=== PATIENT | female | born 1930 | race Caucasian/White ===

== ENCOUNTER 2018-10-08 15:31 | Emergency (ER) | payer MEDICARE ==
[~2018-10-08] VITALS: Ht 170.2 cm; Wt 62.0 kg
[~2018-10-08 15:31] MED LIST: ACET-2119 PO; ANTIDIARRHEAL PO; ASPI-1265 PO; ATEN25TA PO; BENA40TA73 PO; CLOP75TA9 PO; CYCL-1 PO; FERR325T28 PO; GABA600T13 PO; LACT1CAP67; OCUVITE PO; PANT40TA4 PO; TRIA1TAB3 PO; allergy pill
[2018-10-08 16:04] LABS: BASOPHILS % (AUTO) 0.2 % (0-1); EOSINOPHILS # (AUTO) 0.3 X10'3 (0-0.9); EOSINOPHILS % (AUTO) 3.6 % (0-6); HEMATOCRIT 40.3 % (35.0-45.0); HEMOGLOBIN 13.3 g/dl (12.0-16.0); LYMPHOCYTES # (AUTO) 0.6 X10'3 (1.1-4.8); LYMPHOCYTES % (AUTO) 6.4 % (21-51); MEAN CORPUSCULAR HEMOGLOBIN 34.1 PG (27.0-31.0); MEAN CORPUSCULAR HGB CONC 32.9 g/dL (33.0-36.5); MEAN CORPUSCULAR VOLUME 103.6 FL (78-98); MEAN PLATELET VOLUME 8.7 FL (7.4-10.4); MONOCYTES # (AUTO) 0.3 X10'3 (0-0.9); MONOCYTES % (AUTO) 3.5 % (2-12); NEUTROPHILS # (AUTO) 8.4 X10'3 (1.8-7.7); NEUTROPHILS % (AUTO) 86.3 % (42-75); PLATELET COUNT 188 X10'3 (140-440); RED BLOOD COUNT 3.89 X10'6 (4.20-5.60); RED CELL DISTRIBUTION WIDTH 12.3 % (11.5-14.5); WHITE BLOOD COUNT 9.7 X10'3 (4.5-11.0)
[2018-10-08 16:18] LABS: ALANINE AMINOTRANSFERASE 17 U/L (12-78); ALBUMIN 3.5 G/DL (3.4-5.0); ALKALINE PHOSPHATASE 53 IU/L (46-116); ANION GAP 8 (8-16); ASPARTATE AMINO TRANSFERASE 16 U/L (10-37); BILIRUBIN,TOTAL 0.2 MG/DL (0.1-1.0); BLOOD UREA NITROGEN 34 MG/DL (7-18); BUN/CREATININE RATIO 27.6 (6.6-38.0); CHLORIDE 96 MMOL/L (99-107); CREATININE 1.23 MG/DL (0.40-0.90); GLUCOSE 116 MG/DL (70-104); POTASSIUM 4.2 MMOL/L (3.5-5.1); SODIUM 129 MMOL/L (135-145); TOTAL CARBON DIOXIDE 25.3 MMOL/L (24-32); TOTAL PROTEIN 6.9 G/DL (6.4-8.2); eGFR 41 ML/MIN
[2018-10-08 16:19] LABS: INR 0.9 INR; PROTHROMBIN TIME 9.6 SECONDS (9.0-12.0)
[2018-10-08 16:40] LABS: LIPASE 50 U/L (73-393)
[2018-10-08 19:47] LABS: CLARITY,URINE CLEAR (Clear); COLOR,URINE YELLOW (Yellow); GLUCOSE, URINE NEGATIVE (Neg); KETONES,URINE NEGATIVE (Neg); LEUKOCYTE ESTERASE ,URINE TRACE (Neg); NITRITES, URINE NEGATIVE (Neg); OCCULT BLOOD,URINE NEGATIVE (Neg); PH,URINE 5.5 (4.8-8.0); PROTEIN,URINE TRACE mg/dl (Neg); UROBILINOGEN,URINE 0.2 E.U/dL (0.2-1.0)
[2018-10-08 19:49] LABS: UA COLLECTION TYPE CLN CATCH MIDSTREAM
[2018-10-08 19:55] LABS: BACTERIA,URINE FEW /HPF (Neg); COARSE GRANULAR CAST 0-3 /LPF (NEGATIVE); RBC,URINE 0-2 /HPF (0-2); SQUAMOUS EPITHELIAL CELL,UR FEW /LPF (FEW); WBC,URINE 0-4 /HPF (0-4)
[2018-10-08 20:21] VITALS: BP 111/61
[2018-10-08] MEDS ORDERED: normal saline 1000ML IV soln IV ONE (20:40)
== END 2018-10-08 20:04 | disposition home or self-care (01) ==
LOC: ER 15:32
DX: R53.1 Weakness (principal); R19.7 Diarrhea, unspecified; G89.29 Other chronic pain; I10 Essential (primary) hypertension; J44.9 Chronic obstructive pulmonary disease, unspecified; F17.200 Nicotine dependence, unspecified, uncomplicated; Z91.040 Latex allergy status; Z88.2 Allergy status to sulfonamides; Z79.82 Long term (current) use of aspirin; Z79.899 Other long term (current) drug therapy
CPT/HCPCS: 36415; 74176; 80053; 81001; 83605; 83690; 84145; 85025; 85610; 87040; 87088; 96360; 99284; J7030

== ENCOUNTER 2019-03-19 16:18 | Inpatient (IN) | payer MEDICARE ==
[~2019-03-19] VITALS: Ht 170.2 cm; Wt 75.0 kg
[2019-03-19] MEDS ORDERED: normal saline 1000ML IV soln IVB ONE (16:50)
[2019-03-19] MEDS ORDERED: ipratropium/albuterol 3ml nebule NEB ONE (16:50)
[2019-03-19 17:32] LABS: BASOPHILS % (AUTO) 0.1 % (0-1); EOSINOPHILS % (AUTO) 0 % (0-6); HEMATOCRIT 38.1 % (35.0-45.0); HEMOGLOBIN 12.9 g/dl (12.0-16.0); LYMPHOCYTES # (AUTO) 0.2 X10'3 (1.1-4.8); LYMPHOCYTES % (AUTO) 1.4 % (21-51); MEAN CORPUSCULAR HEMOGLOBIN 35.2 PG (27.0-31.0); MEAN CORPUSCULAR HGB CONC 33.8 g/dL (33.0-36.5); MEAN PLATELET VOLUME 7.5 FL (7.4-10.4); MONOCYTES # (AUTO) 0.6 X10'3 (0-0.9); MONOCYTES % (AUTO) 3.3 % (2-12); NEUTROPHILS # (AUTO) 16.9 X10'3 (1.8-7.7); NEUTROPHILS % (AUTO) 95.2 % (42-75); PLATELET COUNT 223 X10'3 (140-440); RED BLOOD COUNT 3.66 X10'6 (4.20-5.60); RED CELL DISTRIBUTION WIDTH 12.2 % (11.5-14.5); WHITE BLOOD COUNT 17.7 X10'3 (4.5-11.0)
[2019-03-19] MEDS ORDERED: normal saline 1000ML IV soln IV ONE (17:35)
[2019-03-19] MEDS ORDERED: diltiazem 5mg/ml 5ml inj. IV ONE (17:35)
[2019-03-19 17:48] LABS: ALANINE AMINOTRANSFERASE 20 U/L (12-78); ALBUMIN 3.2 G/DL (3.4-5.0); ALKALINE PHOSPHATASE 51 IU/L (46-116); ANION GAP 8 (8-16); ASPARTATE AMINO TRANSFERASE 30 U/L (10-37); BILIRUBIN,TOTAL 0.4 MG/DL (0.1-1.0); BLOOD UREA NITROGEN 18 MG/DL (7-18); CALCIUM 8.6 MG/DL (8.5-10.1); CHLORIDE 94 MMOL/L (99-107); GLUCOSE 140 MG/DL (70-104); POTASSIUM 3.9 MMOL/L (3.5-5.1); SODIUM 129 MMOL/L (135-145); TOTAL CARBON DIOXIDE 27.1 MMOL/L (24-32); TOTAL PROTEIN 6.3 G/DL (6.4-8.2); eGFR 59 ML/MIN
[2019-03-19 17:59] LABS: CLARITY,URINE SLIGHTLY CLOUDY (Clear); COLOR,URINE YELLOW (Yellow); GLUCOSE, URINE NEGATIVE (Neg); KETONES,URINE 15 mg/dl (Neg); LEUKOCYTE ESTERASE ,URINE SMALL (Neg); NITRITES, URINE NEGATIVE (Neg); OCCULT BLOOD,URINE MODERATE (Neg); PH,URINE 6.5 (4.8-8.0); PROTEIN,URINE 100 mg/dl (Neg); UROBILINOGEN,URINE 0.2 E.U/dL (0.2-1.0)
[2019-03-19 18:01] LABS: CREATINE KINASE 467 U/L (26-192); TROPONIN I < 0.04 NG/ML (0.0-0.05)
[2019-03-19 18:23] LABS: UA COLLECTION TYPE STRAIGHT CATH
[2019-03-19 18:34] LABS: HYALINE CASTS 0-3 /LPF (NEGATIVE)
[2019-03-19 18:35] LABS: BACTERIA,URINE 1+ /HPF (Neg); MUCUS STRANDS MANY /LPF (Neg); SQUAMOUS EPITHELIAL CELL,UR FEW /LPF (FEW); WBC CLUMPS,URINE FEW /HPF (NEGATIVE); WBC,URINE TNTC /HPF (0-4)
[2019-03-19] MEDS ORDERED: CefTRIAXone 2gm/D5W 50ml 50 ML IV ONE (18:35)
[2019-03-19] MEDS ORDERED: GABA-532 PO (19:01)
[2019-03-19] MEDS ORDERED: PRAV20TA4 PO (19:02)
[2019-03-19] MEDS ORDERED: OXYB5TAB16 PO (19:03)
[2019-03-19] MEDS ORDERED: CARV-50 PO (19:03)
[2019-03-19] MEDS ORDERED: TRIA1CAP6 PO (19:05)
[2019-03-19] MEDS ORDERED: magnesium hydroxide 30ml (MOM) UD suspension PO PRN (19:35)
[2019-03-19] MEDS ORDERED: albuterol 2.5 MG/3 ML nebule NEB PRN (19:35)
[2019-03-19] MEDS ORDERED: mag hydrox/Alum hydrox/simeth 30ml oral suspension PO PRN (19:35)
[2019-03-19] MEDS ORDERED: HYDROcodone/acetaminophen 5mg/325mg tablet PO PRN (19:35)
[2019-03-19] MEDS ORDERED: acetaminophen 325mg tablet PO PRN (19:35)
[2019-03-19] MEDS ORDERED: ondansetron/PF 4mg/2ml inj IV PRN (19:35)
[2019-03-19] MEDS ORDERED: BENAZEPRIL HCL PO SCH (20:00)
[2019-03-19 22:00] VITALS: BP 143/64
[2019-03-19] MEDS: diltiazem CD 120mg capsule (once-daily) PO SCH (23:38)
[2019-03-19] MEDS: gabapentin 300mg capsule PO SCH (23:38)
[2019-03-19] MEDS: carVEDilol 12.5mg tablet PO SCH (23:39)
[2019-03-19] MEDS: lisinopril 20mg tablet PO SCH (23:39)
[2019-03-19] MEDS: oxybutynin 5mg tablet PO SCH (23:39)
[2019-03-20] VITALS (8 sets, daily range): BP systolic 112–143; BP diastolic 42–57
[2019-03-20 00:02] LABS: HEMOGLOBIN A1C 5.4 % (4.5-6.2)
[2019-03-20 04:55] LABS: BASOPHILS % (AUTO) 0.1 % (0-1); EOSINOPHILS % (AUTO) 0.2 % (0-6); HEMATOCRIT 33.3 % (35.0-45.0); HEMOGLOBIN 11.6 g/dl (12.0-16.0); LYMPHOCYTES # (AUTO) 0.4 X10'3 (1.1-4.8); LYMPHOCYTES % (AUTO) 3.9 % (21-51); MEAN CORPUSCULAR HEMOGLOBIN 36.3 PG (27.0-31.0); MEAN CORPUSCULAR HGB CONC 34.8 g/dL (33.0-36.5); MEAN CORPUSCULAR VOLUME 104.5 FL (78-98); MEAN PLATELET VOLUME 8.1 FL (7.4-10.4); MONOCYTES # (AUTO) 0.7 X10'3 (0-0.9); NEUTROPHILS # (AUTO) 9.2 X10'3 (1.8-7.7); NEUTROPHILS % (AUTO) 88.8 % (42-75); PLATELET COUNT 163 X10'3 (140-440); RED BLOOD COUNT 3.19 X10'6 (4.20-5.60); RED CELL DISTRIBUTION WIDTH 12.5 % (11.5-14.5); WHITE BLOOD COUNT 10.4 X10'3 (4.5-11.0)
[2019-03-20 05:03] LABS: ALBUMIN 2.7 G/DL (3.4-5.0); ANION GAP 10 (8-16); BLOOD UREA NITROGEN 22 MG/DL (7-18); BUN/CREATININE RATIO 27.2 (6.6-38.0); CALCIUM 8.5 MG/DL (8.5-10.1); CHLORIDE 96 MMOL/L (99-107); CREATININE 0.81 MG/DL (0.40-0.90); GLUCOSE 118 MG/DL (70-104); POTASSIUM 3.6 MMOL/L (3.5-5.1); SODIUM 131 MMOL/L (135-145); eGFR 67 ML/MIN
[2019-03-20] MEDS ORDERED: pravastatin 40mg tablet PO SCH (08:00)
[2019-03-20] MEDS ORDERED: non-formulary drug (Pravastatin Sodium 1 TAB) PO SCH (08:00)
[2019-03-20] MEDS: ferrous sulfate 325mg tablet PO SCH (08:33)
[2019-03-20] MEDS: oxybutynin 5mg tablet PO SCH ×2 (08:33→20:31)
[2019-03-20] MEDS: gabapentin 300mg capsule PO SCH ×3 (08:34→20:28)
[2019-03-20] MEDS: aspirin 81mg tab.chew PO SCH (08:34)
[2019-03-20] MEDS: enoxaparin 40mg/0.4ml syringe SUBCUT SCH (08:35)
[2019-03-20] MEDS: CefTRIAXone/D5W-Rocephin 1gm 50 ML IV SCH (09:20)
[2019-03-20] MEDS: diltiazem CD 120mg capsule (once-daily) PO SCH (09:25)
[2019-03-20] MEDS: triamterene/HCTZ 37.5/25mg tablet PO SCH (09:25)
[2019-03-20] MEDS: carVEDilol 12.5mg tablet PO SCH ×2 (09:26→20:30)
[2019-03-20] MEDS: lisinopril 20mg tablet PO SCH ×2 (09:26→20:29)
[2019-03-20] MEDS: acetaminophen 325mg tablet PO PRN (13:30)
[2019-03-20] MEDS ORDERED: furosemide 40mg/4ml inj IV ONE (13:40)
--- NOTE | 2019-03-20 18:12 | NUR ---
Problems reprioritized. Patient report given, questions answered & plan of care reviewed with YOBANI GIRARD.
--- NOTE | 2019-03-20 18:30 | NUR ---
Patient in room PCU 3028. I have received report from Monica HILTON and had the opportunity to ask questions and assume patient care. Patient resting with oxygen on, very lethargic. O2 saturation 100% on 3L/min, decreased to 2 L/min saturation to 98%. Will continue to monitor.
[2019-03-20] MEDS: lactobacillus rhamnosus 10,000 MMU CELLS/CAPSULE PO SCH (20:30)
[2019-03-21 02:30] VITALS: BP 110/53
[2019-03-21 06:00] VITALS: BP 109/53
--- NOTE | 2019-03-21 06:06 | NUR ---
Notified Dr. Woodward that the patient had 715 in bladder per bladder scanner. Received order for 1 time straight cath, result of 500 ml clear strong odor, patient states relief. Will continue to monitor.
--- NOTE | 2019-03-21 06:15 | NUR ---
Patient in room PCU 3028. I have received report from YOBANI Carrillo and had the opportunity to ask questions and assume patient care.
[2019-03-21 06:22] LABS: BASOPHILS % (AUTO) 0.3 % (0-1); EOSINOPHILS # (AUTO) 0.5 X10'3 (0-0.9); EOSINOPHILS % (AUTO) 6.3 % (0-6); HEMATOCRIT 32.1 % (35.0-45.0); HEMOGLOBIN 11.1 g/dl (12.0-16.0); LYMPHOCYTES % (AUTO) 13.6 % (21-51); MEAN CORPUSCULAR HEMOGLOBIN 35.6 PG (27.0-31.0); MEAN CORPUSCULAR HGB CONC 34.5 g/dL (33.0-36.5); MEAN CORPUSCULAR VOLUME 103.4 FL (78-98); MEAN PLATELET VOLUME 8.3 FL (7.4-10.4); MONOCYTES # (AUTO) 0.7 X10'3 (0-0.9); MONOCYTES % (AUTO) 9.1 % (2-12); NEUTROPHILS # (AUTO) 5.2 X10'3 (1.8-7.7); NEUTROPHILS % (AUTO) 70.7 % (42-75); PLATELET COUNT 171 X10'3 (140-440); RED BLOOD COUNT 3.11 X10'6 (4.20-5.60); RED CELL DISTRIBUTION WIDTH 12.5 % (11.5-14.5); WHITE BLOOD COUNT 7.3 X10'3 (4.5-11.0)
[2019-03-21 06:34] LABS: ALBUMIN 2.9 G/DL (3.4-5.0); ANION GAP 8 (8-16); BLOOD UREA NITROGEN 28 MG/DL (7-18); BUN/CREATININE RATIO 32.9 (6.6-38.0); CALCIUM 9.1 MG/DL (8.5-10.1); CHLORIDE 96 MMOL/L (99-107); CREATININE 0.85 MG/DL (0.40-0.90); GLUCOSE 106 MG/DL (70-104); POTASSIUM 3.3 MMOL/L (3.5-5.1); SODIUM 132 MMOL/L (135-145); TOTAL CARBON DIOXIDE 27.8 MMOL/L (24-32); eGFR 63 ML/MIN
--- NOTE | 2019-03-21 06:43 | NUR ---
Problems reprioritized. Patient report given, questions answered & plan of care reviewed with Erika HILTON. Patient resting in bed, denies needs at this time.
[2019-03-21] MEDS: triamterene/HCTZ 37.5/25mg tablet PO SCH (08:30)
[2019-03-21] MEDS: pravastatin 40mg tablet PO SCH (08:30)
[2019-03-21] MEDS: oxybutynin 5mg tablet PO SCH ×2 (08:30→19:49)
[2019-03-21] MEDS: carVEDilol 12.5mg tablet PO SCH ×2 (08:30→19:49)
[2019-03-21] MEDS: ferrous sulfate 325mg tablet PO SCH (08:30)
[2019-03-21] MEDS: lactobacillus rhamnosus 10,000 MMU CELLS/CAPSULE PO SCH ×2 (08:30→19:49)
[2019-03-21] MEDS: aspirin 81mg tab.chew PO SCH (08:31)
[2019-03-21] MEDS: gabapentin 300mg capsule PO SCH ×3 (08:31→20:59)
[2019-03-21] MEDS: diltiazem CD 120mg capsule (once-daily) PO SCH (08:31)
[2019-03-21] MEDS: lisinopril 20mg tablet PO SCH ×2 (08:31→19:50)
[2019-03-21] MEDS: enoxaparin 40mg/0.4ml syringe SUBCUT SCH (08:32)
[2019-03-21] MEDS: CefTRIAXone/D5W-Rocephin 1gm 50 ML IV SCH (08:32)
[2019-03-21] MEDS ORDERED: potassium Cl 20 mEq SR tablet PO STA (09:21)
[2019-03-21 11:00] VITALS: BP 91/49
[2019-03-21] MEDS: acetaminophen 325mg tablet PO PRN ×2 (14:26→21:00)
[2019-03-21 15:00] VITALS: BP 110/46
[2019-03-21 18:00] VITALS: BP 140/53
--- NOTE | 2019-03-21 18:00 | NUR ---
Patient in room PCU 3028. I have received report from YOBANI Green and had the opportunity to ask questions and assume patient care.
--- NOTE | 2019-03-21 18:27 | NUR ---
Problems reprioritized. Patient report given, questions answered & plan of care reviewed with YOBANI Matos.
[2019-03-21 22:00] VITALS: BP 112/52
[2019-03-22 02:00] VITALS: BP 134/60
--- NOTE | 2019-03-22 04:50 | NUR ---
Patient slept well this shift, eager to go home. Alert and oriented. Able to transfer to the bedside commode with one person assisting. Dressing on left elbow/forearm changed this shift. Will continue to monitor.
[2019-03-22 05:16] LABS: BASOPHILS % (AUTO) 0.6 % (0-1); EOSINOPHILS # (AUTO) 0.6 X10'3 (0-0.9); EOSINOPHILS % (AUTO) 9.4 % (0-6); HEMATOCRIT 31.1 % (35.0-45.0); HEMOGLOBIN 10.8 g/dl (12.0-16.0); LYMPHOCYTES # (AUTO) 1.2 X10'3 (1.1-4.8); LYMPHOCYTES % (AUTO) 19.7 % (21-51); MEAN CORPUSCULAR HEMOGLOBIN 36.2 PG (27.0-31.0); MEAN CORPUSCULAR HGB CONC 34.7 g/dL (33.0-36.5); MEAN CORPUSCULAR VOLUME 104.1 FL (78-98); MEAN PLATELET VOLUME 8.5 FL (7.4-10.4); MONOCYTES # (AUTO) 0.7 X10'3 (0-0.9); MONOCYTES % (AUTO) 10.8 % (2-12); NEUTROPHILS # (AUTO) 3.6 X10'3 (1.8-7.7); NEUTROPHILS % (AUTO) 59.5 % (42-75); PLATELET COUNT 176 X10'3 (140-440); RED BLOOD COUNT 2.99 X10'6 (4.20-5.60); WHITE BLOOD COUNT 6.1 X10'3 (4.5-11.0)
[2019-03-22 05:52] LABS: ALBUMIN 2.9 G/DL (3.4-5.0); ANION GAP 5 (8-16); BLOOD UREA NITROGEN 22 MG/DL (7-18); BUN/CREATININE RATIO 25.6 (6.6-38.0); CALCIUM 9.4 MG/DL (8.5-10.1); CHLORIDE 97 MMOL/L (99-107); CREATININE 0.86 MG/DL (0.40-0.90); GLUCOSE 103 MG/DL (70-104); POTASSIUM 3.4 MMOL/L (3.5-5.1); SODIUM 133 MMOL/L (135-145); TOTAL CARBON DIOXIDE 31.4 MMOL/L (24-32); eGFR 62 ML/MIN
--- NOTE | 2019-03-22 06:09 | NUR ---
Problems reprioritized. Patient report given, questions answered & plan of care reviewed with Peter HILTON.
--- NOTE | 2019-03-22 06:18 | NUR ---
Patient in room PCU 3028. I have received report from YOBANI Matos and had the opportunity to ask questions and assume patient care.
[2019-03-22 07:00] VITALS: BP 140/59
[2019-03-22] MEDS: CefTRIAXone/D5W-Rocephin 1gm 50 ML IV SCH (08:34)
[2019-03-22] MEDS: aspirin 81mg tab.chew PO SCH (08:34)
[2019-03-22] MEDS: triamterene/HCTZ 37.5/25mg tablet PO SCH (08:35)
[2019-03-22] MEDS: carVEDilol 12.5mg tablet PO SCH (08:35)
[2019-03-22] MEDS: lactobacillus rhamnosus 10,000 MMU CELLS/CAPSULE PO SCH (08:35)
[2019-03-22] MEDS: ferrous sulfate 325mg tablet PO SCH (08:35)
[2019-03-22] MEDS: diltiazem CD 120mg capsule (once-daily) PO SCH (08:35)
[2019-03-22] MEDS: oxybutynin 5mg tablet PO SCH (08:35)
[2019-03-22] MEDS: gabapentin 300mg capsule PO SCH (08:35)
[2019-03-22] MEDS: enoxaparin 40mg/0.4ml syringe SUBCUT SCH (08:36)
[2019-03-22] MEDS: pravastatin 40mg tablet PO SCH (08:36)
[2019-03-22] MEDS: lisinopril 20mg tablet PO SCH (08:36)
[2019-03-22 11:00] VITALS: BP 147/60
[2019-03-22] MEDS ORDERED: CARCD120C PO (11:05)
--- NOTE | 2019-03-22 12:15 | NUR ---
Pt received d/c instructions, verbalized understanding. Pt verbalizes understanding medication changes. New medication called to [facility] on [address]. Dc'd SL, catheter tip intact. Site clear. Dc'd via w/c to private vehicle (with daughter), all personal belongings sent home with pt.
--- NOTE | 2019-03-22 16:24 | NUR ---
[place] documentation: I have reviewed and agree with all interventions, assessments performed and documented by YOBANI Doan.
--- NOTE | 2019-03-22 16:24 | NUR ---
[place] Medication Administration: For this medication-pass time frame, all medication were reviewed, dispensed, administered and documented per hospital policy by YOBANI Doan.
== END 2019-03-22 12:25 | disposition home health service (06) | DRG 871 ==
LOC: ER 16:19 → CANBEDREQ 18:13 → PCU 3S 21:20 → CMPBEDREQ 21:23 → S STAY 03-20 09:29 → PCU 3S 03-20 09:30
PROVIDERS: ADMIT Hospitalist; ATTEND Family Medicine
DX: A41.9 Sepsis, unspecified organism (principal); G93.41 Metabolic encephalopathy; N30.01 Acute cystitis with hematuria; E11.9 Type 2 diabetes mellitus without complications; I11.0 Hypertensive heart disease with heart failure; I48.91 Unspecified atrial fibrillation; S51.812A Laceration without foreign body of left forearm, initial encounter; I50.9 Heart failure, unspecified; G89.29 Other chronic pain; W18.39XA Other fall on same level, initial encounter; M54.9 Dorsalgia, unspecified; J44.9 Chronic obstructive pulmonary disease, unspecified; Z66 Do not resuscitate; Z85.828 Personal history of other malignant neoplasm of skin; Z87.440 Personal history of urinary (tract) infections; Z90.710 Acquired absence of both cervix and uterus; Z98.1 Arthrodesis status; Y93.89 Activity, other specified; Y92.89 Other specified places as the place of occurrence of the external cause; Y99.8 Other external cause status; Z88.2 Allergy status to sulfonamides; Z91.040 Latex allergy status; Z82.49 Family history of ischemic heart disease and other diseases of the circulatory system; Z83.3 Family history of diabetes mellitus
CPT/HCPCS: 36415; 70450; 71045; 80048; 80053; 81001; 82550; 82948; 83036; 83605; 83880; 84145; 84443; 84484; 85025; 85610; 87040; 87081; 87088; 93005; 93306; 94640; 94760; 96365; 96375; 97116; 97162; 97530; 99285; G0378; J0696; J1650; J1940; J3490

== ENCOUNTER 2019-03-27 16:19 | Inpatient (IN) | payer MEDICARE ==
[~2019-03-27] VITALS: Ht 170.2 cm; Wt 62.0 kg
[~2019-03-27 16:19] MED LIST changes: -ANTIDIARRHEAL PO; -ATEN25TA PO; +CARCD120C PO; +CARV-50 PO; -CLOP75TA9 PO; -CYCL-1 PO; +GABA-532 PO; -GABA600T13 PO; +OXYB5TAB16 PO; -PANT40TA4 PO; +PRAV20TA4 PO; -allergy pill
[2019-03-27] MEDS ORDERED: methylPREDNISolone sod succ 125mg/2ml vial IV ONE (16:35)
[2019-03-27] MEDS ORDERED: ipratropium/albuterol 3ml nebule NEB ONE (16:45)
--- NOTE | 2019-03-27 16:46 | NUR ---
relieving RN for break, pt is resting quietly on gurney, high fowlers, speaking 2-3 word sentences, just finished breathing treatment, laboratory chemist at bedside, pt is 84% on room air, placed pt on 6liters 02 nasal cannula
--- NOTE | 2019-03-27 16:54 | NUR ---
Dr Goel aware of low pulse ox reading, placed order for RT to place pt on bipap, pulse ox is 97% on 6liters, turned 02 down to 2liters
--- NOTE | 2019-03-27 16:59 | NUR ---
report to Jarrod HILTON
--- NOTE | 2019-03-27 17:04 | NUR ---
Rt at bedside.
[2019-03-27 17:05] LABS: RED CELL DISTRIBUTION WIDTH 12.3 % (11.5-14.5)
[2019-03-27 17:06] LABS: HEMATOCRIT 36.9 % (35.0-45.0); HEMOGLOBIN 12.6 g/dl (12.0-16.0); MEAN CORPUSCULAR HEMOGLOBIN 35.6 PG (27.0-31.0); MEAN CORPUSCULAR HGB CONC 34.1 g/dL (33.0-36.5); MEAN CORPUSCULAR VOLUME 104.4 FL (78-98); MEAN PLATELET VOLUME 7.6 FL (7.4-10.4); PLATELET COUNT 298 X10'3 (140-440); RED BLOOD COUNT 3.53 X10'6 (4.20-5.60)
[2019-03-27 17:08] LABS: WHITE BLOOD COUNT 12.4 X10'3 (4.5-11.0)
[2019-03-27 17:14] LABS: PARTIAL THROMBOPLASTIN TIME 26 SECONDS (22-32)
[2019-03-27 17:17] LABS: ALANINE AMINOTRANSFERASE 21 U/L (12-78); ALBUMIN 3.8 G/DL (3.4-5.0); ALBUMIN/GLOBULIN RATIO 1.4 (1.1-1.5); ALKALINE PHOSPHATASE 54 IU/L (46-116); ANION GAP 10 (8-16); ASPARTATE AMINO TRANSFERASE 13 U/L (10-37); BILIRUBIN,TOTAL 0.5 MG/DL (0.1-1.0); BLOOD UREA NITROGEN 19 MG/DL (7-18); BUN/CREATININE RATIO 18.8 (6.6-38.0); CALCIUM 9.8 MG/DL (8.5-10.1); CHLORIDE 98 MMOL/L (99-107); CREATININE 1.01 MG/DL (0.40-0.90); GLUCOSE 97 MG/DL (70-104); POTASSIUM 3.6 MMOL/L (3.5-5.1); SODIUM 134 MMOL/L (135-145); TOTAL PROTEIN 6.5 G/DL (6.4-8.2); eGFR 52 ML/MIN
--- NOTE | 2019-03-27 17:25 | NUR ---
PATIENT STARTED ON BIPAP.WE WILL MONITOR.
[2019-03-27] MEDS ORDERED: TRIA1CAP6 PO (17:31)
[2019-03-27] MEDS ORDERED: NITR100C PO (17:31)
[2019-03-27] MEDS ORDERED: DILT120C95 PO (17:32)
[2019-03-27 17:55] LABS: TOTAL CELLS COUNTED 100
[2019-03-27 17:56] LABS: TOXIC VACUOLATION 1+
[2019-03-27 17:57] LABS: ACANTHOCYTES FEW; ELLIPTOCYTES FEW; PLATELET ESTIMATE NORMAL
[2019-03-27] MEDS ORDERED: normal saline 1000ML IV soln IVB ONE ×2 (18:15→18:40)
--- NOTE | 2019-03-27 18:15 | NUR ---
fi02 35% patient sating 89-90%,patient has hx of copd.
[2019-03-27] MEDS ORDERED: CefTRIAXone 2gm/D5W 50ml 50 ML IV ONE (18:40)
--- NOTE | 2019-03-27 19:41 | NUR ---
RT at BS
--- NOTE | 2019-03-27 19:50 | NUR ---
PT REQUESTING THE CPAP BE REMOVED. REMOVED, ON OXYGEN 3 L NC. INFORMED .
[2019-03-27 20:05] LABS: ABG BASE EXCESS -2.8 mmol/L (-2.0-3.0); ABG HCO3 22.8 mmol/L (22.0-26.0); ABG OXYGEN SATURATION 93.9 % (95-98); ABG PCO2 (T) 42.6 mmHg (35.0-45.0); ABG PH (T) 7.345 (7.350-7.450); ALLEN'S TEST Positive; FCOHb 0.8 % (0.5-1.5); FLOW 3 L/min; FMetHb 0.1 % (0.3-1.12); FO2Hb 93.1 % (94-100); PATIENT TEMPERATURE 36.9; RESPIRATORY RATE (OBSERVED) 16 b/min; TOTAL HEMOGLOBIN 11.3 G/dl (12.0-16.0)
--- NOTE | 2019-03-27 20:08 | NUR ---
PT DOING WELL WITH NC.
[2019-03-27] MEDS ORDERED: acetaminophen 325mg tablet PO PRN (20:40)
[2019-03-27] MEDS ORDERED: mag hydrox/Alum hydrox/simeth 30ml oral suspension PO PRN (20:40)
[2019-03-27] MEDS ORDERED: magnesium hydroxide 30ml (MOM) UD suspension PO PRN (20:40)
[2019-03-27] MEDS ORDERED: HYDROcodone/acetaminophen 5mg/325mg tablet PO PRN (20:40)
[2019-03-27] MEDS ORDERED: albuterol 2.5 MG/3 ML nebule NEB PRN (20:40)
[2019-03-27] MEDS ORDERED: ondansetron/PF 4mg/2ml inj IV PRN (20:40)
[2019-03-27] MEDS: normal saline 1000ml 1,000 ML IV SCH (21:58)
[2019-03-27] MEDS: acetaminophen 325mg tablet PO PRN (22:09)
--- NOTE | 2019-03-27 22:58 | NUR ---
Macular degenration Addendum: 03/27/19 at 2312 by Deshawn Rubin RN Amended: Links added.
[2019-03-28 00:07] VITALS: BP 150/81
--- NOTE | 2019-03-28 01:46 | NUR ---
Patient in room [facility] 345. I have received report from Cait ED RN, 3081 and had the opportunity to ask questions and assume patient care. patient arrived via gurney with belongings. RN transported, and daughter accompanied. Patient was in no apparent distress. Admiting process begun.
[2019-03-28 04:37] LABS: BASOPHILS % (AUTO) 0.1 % (0-1); EOSINOPHILS % (AUTO) 0 % (0-6); HEMATOCRIT 30.7 % (35.0-45.0); HEMOGLOBIN 10.3 g/dl (12.0-16.0); LYMPHOCYTES # (AUTO) 0.1 X10'3 (1.1-4.8); LYMPHOCYTES % (AUTO) 0.4 % (21-51); MEAN CORPUSCULAR HEMOGLOBIN 35.1 PG (27.0-31.0); MEAN CORPUSCULAR HGB CONC 33.5 g/dL (33.0-36.5); MEAN CORPUSCULAR VOLUME 104.8 FL (78-98); MEAN PLATELET VOLUME 8.1 FL (7.4-10.4); MONOCYTES # (AUTO) 0.6 X10'3 (0-0.9); MONOCYTES % (AUTO) 2.8 % (2-12); NEUTROPHILS # (AUTO) 22.4 X10'3 (1.8-7.7); NEUTROPHILS % (AUTO) 96.7 % (42-75); PLATELET COUNT 255 X10'3 (140-440); RED BLOOD COUNT 2.93 X10'6 (4.20-5.60); RED CELL DISTRIBUTION WIDTH 12.4 % (11.5-14.5); WHITE BLOOD COUNT 23.2 X10'3 (4.5-11.0)
[2019-03-28 04:52] LABS: ALBUMIN 2.8 G/DL (3.4-5.0); ANION GAP 9 (8-16); BLOOD UREA NITROGEN 22 MG/DL (7-18); BUN/CREATININE RATIO 23.4 (6.6-38.0); CALCIUM 9.3 MG/DL (8.5-10.1); CHLORIDE 101 MMOL/L (99-107); CREATININE 0.94 MG/DL (0.40-0.90); GLUCOSE 201 MG/DL (70-104); POTASSIUM 4.1 MMOL/L (3.5-5.1); SODIUM 134 MMOL/L (135-145); TOTAL CARBON DIOXIDE 24.3 MMOL/L (24-32); eGFR 56 ML/MIN
[2019-03-28 06:01] LABS: CLARITY,URINE CLOUDY (Clear); COLOR,URINE YELLOW (Yellow); GLUCOSE, URINE NEGATIVE (Neg); KETONES,URINE TRACE mg/dl (Neg); LEUKOCYTE ESTERASE ,URINE SMALL (Neg); NITRITES, URINE NEGATIVE (Neg); OCCULT BLOOD,URINE NEGATIVE (Neg); PROTEIN,URINE NEGATIVE (Neg); UROBILINOGEN,URINE 0.2 E.U/dL (0.2-1.0)
[2019-03-28 06:04] LABS: UA COLLECTION TYPE URINAL
[2019-03-28 06:12] LABS: BACTERIA,URINE 2+ /HPF (Neg); HYALINE CASTS 0-3 /LPF (NEGATIVE); MUCUS STRANDS FEW /LPF (Neg); RBC,URINE NONE SEEN /HPF (0-2); SQUAMOUS EPITHELIAL CELL,UR FEW /LPF (FEW); WBC CLUMPS,URINE MODERATE /HPF (NEGATIVE); WBC,URINE TNTC /HPF (0-4)
--- NOTE | 2019-03-28 06:40 | NUR ---
Patient in room [facility] 345. I have received report from YOBANI Hess and had the opportunity to ask questions and assume patient care.
--- NOTE | 2019-03-28 06:42 | NUR ---
Problems reprioritized. Patient report given, questions answered & plan of care reviewed with Rohit Bermudez and Andree HILTON.
--- NOTE | 2019-03-28 07:03 | NUR ---
Patient in room [facility] 345. I have received report from Andria Fowler RN and had the opportunity to ask questions and assume patient care. Addendum: 03/28/19 at 0704 by Lara Mckeon RN Wrong patient.
[2019-03-28 07:26] VITALS: BP 172/81
[2019-03-28] MEDS ORDERED: methylPREDNISolone sod succ 125mg/2ml vial IV ONE (08:00)
[2019-03-28] MEDS ORDERED: azithromycin/NS 500mg/250ml 250 ML IV SCH (08:00)
[2019-03-28] MEDS: CefTRIAXone/D5W-Rocephin 1gm 50 ML IV SCH (08:22)
[2019-03-28] MEDS: enoxaparin 40mg/0.4ml syringe SUBCUT SCH (08:24)
[2019-03-28] MEDS: normal saline 1000ml 1,000 ML IV SCH ×2 (08:32→21:47)
[2019-03-28 11:48] VITALS: BP 168/81
[2019-03-28] MEDS: acetaminophen 325mg tablet PO PRN (12:51)
[2019-03-28] MEDS: aspirin 81mg tab.chew PO SCH (15:18)
[2019-03-28 18:00] VITALS: BP 146/57
--- NOTE | 2019-03-28 18:31 | NUR ---
Problems reprioritized. Patient report given, questions answered & plan of care reviewed with YOBANI Hess.
--- NOTE | 2019-03-28 18:52 | NUR ---
Patient in room [facility] 345. I have received report from YOBANI Bermudez and had the opportunity to ask questions and assume patient care.
--- NOTE | 2019-03-28 18:56 | NUR ---
Called Day hospitalist to inform her that the patient order for Solumedrol 60mg BID had been dc'd. It was put in as a one time does to to give BID. Hospitalist said that she would look over the patients case and re order it if she thought it appropriate.
[2019-03-28] MEDS: oxybutynin 5mg tablet PO SCH (20:37)
[2019-03-28] MEDS: carVEDilol 12.5mg tablet PO SCH (20:38)
[2019-03-28] MEDS: lactobacillus rhamnosus 10,000 MMU CELLS/CAPSULE PO SCH (20:38)
[2019-03-28] MEDS: gabapentin 300mg capsule PO SCH (20:39)
[2019-03-28] MEDS: acetaminophen 325mg tablet PO SCH (20:39)
[2019-03-29 01:20] VITALS: BP 143/68
[2019-03-29] MEDS: acetaminophen 325mg tablet PO PRN ×2 (03:18→20:58)
[2019-03-29 05:28] LABS: ALBUMIN 2.7 G/DL (3.4-5.0); ANION GAP 8 (8-16); BLOOD UREA NITROGEN 19 MG/DL (7-18); BUN/CREATININE RATIO 27.5 (6.6-38.0); CALCIUM 8.7 MG/DL (8.5-10.1); CHLORIDE 102 MMOL/L (99-107); CREATININE 0.69 MG/DL (0.40-0.90); GLUCOSE 127 MG/DL (70-104); POTASSIUM 3.8 MMOL/L (3.5-5.1); SODIUM 135 MMOL/L (135-145); TOTAL CARBON DIOXIDE 25.1 MMOL/L (24-32); eGFR 80 ML/MIN
[2019-03-29 05:44] LABS: BASOPHILS % (AUTO) 0.1 % (0-1); EOSINOPHILS % (AUTO) 0.1 % (0-6); HEMATOCRIT 28.2 % (35.0-45.0); HEMOGLOBIN 9.5 g/dl (12.0-16.0); LYMPHOCYTES # (AUTO) 1.4 X10'3 (1.1-4.8); LYMPHOCYTES % (AUTO) 9.3 % (21-51); MEAN CORPUSCULAR HEMOGLOBIN 35.6 PG (27.0-31.0); MEAN CORPUSCULAR HGB CONC 33.9 g/dL (33.0-36.5); MEAN PLATELET VOLUME 8.1 FL (7.4-10.4); MONOCYTES # (AUTO) 1.5 X10'3 (0-0.9); MONOCYTES % (AUTO) 9.9 % (2-12); NEUTROPHILS # (AUTO) 11.9 X10'3 (1.8-7.7); NEUTROPHILS % (AUTO) 80.6 % (42-75); PLATELET COUNT 223 X10'3 (140-440); RED BLOOD COUNT 2.68 X10'6 (4.20-5.60); RED CELL DISTRIBUTION WIDTH 12.7 % (11.5-14.5); WHITE BLOOD COUNT 14.7 X10'3 (4.5-11.0)
--- NOTE | 2019-03-29 06:45 | NUR ---
Problems reprioritized. Patient report given, questions answered & plan of care reviewed with YOBANI Salguero.
[2019-03-29 07:00] VITALS: BP 155/79
[2019-03-29] MEDS ORDERED: diltiazem CD 120mg capsule (once-daily) PO SCH (08:00)
[2019-03-29] MEDS: acetaminophen 325mg tablet PO SCH ×2 (08:00→12:43)
[2019-03-29] MEDS: ferrous sulfate 325mg tablet PO SCH (08:09)
[2019-03-29] MEDS: gabapentin 300mg capsule PO SCH ×3 (08:09→20:53)
[2019-03-29] MEDS: carVEDilol 12.5mg tablet PO SCH ×2 (08:09→20:54)
[2019-03-29] MEDS: atorvastatin 20mg tablet PO SCH (08:09)
[2019-03-29] MEDS: aspirin 81mg tab.chew PO SCH (08:09)
[2019-03-29] MEDS: oxybutynin 5mg tablet PO SCH ×2 (08:09→20:53)
[2019-03-29] MEDS: lactobacillus rhamnosus 10,000 MMU CELLS/CAPSULE PO SCH ×2 (08:10→20:53)
[2019-03-29] MEDS: lisinopril 20mg tablet PO SCH (08:10)
[2019-03-29] MEDS: CefTRIAXone/D5W-Rocephin 1gm 50 ML IV SCH (08:11)
[2019-03-29] MEDS: enoxaparin 40mg/0.4ml syringe SUBCUT SCH (08:11)
[2019-03-29] MEDS: triamterene/HCTZ 37.5/25mg tablet PO SCH (08:42)
[2019-03-29] MEDS: diltiazem CD 120mg capsule (once-daily) PO SCH (09:23)
[2019-03-29 11:48] VITALS: BP 128/71
[2019-03-29] MEDS: normal saline 1000ml 1,000 ML IV SCH ×2 (11:58→22:37)
[2019-03-29] MEDS ORDERED: LEVO500T89 PO (13:37)
[2019-03-29] MEDS ORDERED: ALBU8HFA PO (13:38)
[2019-03-29] MEDS ORDERED: CefTRIAXone/D5W-Rocephin 1gm 50 ML IV SCH (13:45)
--- NOTE | 2019-03-29 18:32 | NUR ---
Problems reprioritized. Patient report given, questions answered & plan of care reviewed with YOBANI Weinstein.
--- NOTE | 2019-03-29 18:35 | NUR ---
Patient in room [facility] 345. I have received report from KWAME HILTON and had the opportunity to ask questions and assume patient care.
[2019-03-29 20:00] VITALS: BP 170/78
[2019-03-30] VITALS: BP 142/61
[2019-03-30 05:08] LABS: BASOPHILS % (AUTO) 0.2 % (0-1); EOSINOPHILS # (AUTO) 0.4 X10'3 (0-0.9); HEMATOCRIT 30.9 % (35.0-45.0); HEMOGLOBIN 10.5 g/dl (12.0-16.0); LYMPHOCYTES # (AUTO) 2.1 X10'3 (1.1-4.8); LYMPHOCYTES % (AUTO) 14.9 % (21-51); MEAN CORPUSCULAR HEMOGLOBIN 35.5 PG (27.0-31.0); MEAN CORPUSCULAR VOLUME 104.5 FL (78-98); MEAN PLATELET VOLUME 8.3 FL (7.4-10.4); MONOCYTES # (AUTO) 1.3 X10'3 (0-0.9); MONOCYTES % (AUTO) 9.2 % (2-12); NEUTROPHILS # (AUTO) 10.2 X10'3 (1.8-7.7); NEUTROPHILS % (AUTO) 72.7 % (42-75); PLATELET COUNT 241 X10'3 (140-440); RED BLOOD COUNT 2.96 X10'6 (4.20-5.60); RED CELL DISTRIBUTION WIDTH 12.7 % (11.5-14.5); WHITE BLOOD COUNT 14.1 X10'3 (4.5-11.0)
[2019-03-30 05:20] LABS: ALBUMIN 2.9 G/DL (3.4-5.0); ANION GAP 6 (8-16); BLOOD UREA NITROGEN 15 MG/DL (7-18); BUN/CREATININE RATIO 23.4 (6.6-38.0); CALCIUM 9.5 MG/DL (8.5-10.1); CHLORIDE 104 MMOL/L (99-107); CREATININE 0.64 MG/DL (0.40-0.90); GLUCOSE 88 MG/DL (70-104); POTASSIUM 3.9 MMOL/L (3.5-5.1); SODIUM 139 MMOL/L (135-145); TOTAL CARBON DIOXIDE 29.5 MMOL/L (24-32); eGFR 87 ML/MIN
--- NOTE | 2019-03-30 06:30 | NUR ---
Problems reprioritized. Patient report given, questions answered & plan of care reviewed with CLIFFORD HILTON AND EDUARDO HILTON.
--- NOTE | 2019-03-30 06:56 | NUR ---
Patient in room [facility] 345. I have received report from KOJO HILTON and had the opportunity to ask questions and assume patient care.
[2019-03-30 07:33] VITALS: BP 171/79
[2019-03-30] MEDS: atorvastatin 20mg tablet PO SCH (08:28)
[2019-03-30] MEDS: ferrous sulfate 325mg tablet PO SCH (08:28)
[2019-03-30] MEDS: aspirin 81mg tab.chew PO SCH (08:28)
[2019-03-30] MEDS: carVEDilol 12.5mg tablet PO SCH (08:28)
[2019-03-30] MEDS: oxybutynin 5mg tablet PO SCH (08:28)
[2019-03-30 08:29] VITALS: BP_SYST 171
[2019-03-30] MEDS: gabapentin 300mg capsule PO SCH ×2 (08:29→13:11)
[2019-03-30] MEDS: diltiazem CD 120mg capsule (once-daily) PO SCH (08:29)
[2019-03-30] MEDS: lisinopril 20mg tablet PO SCH (08:29)
[2019-03-30] MEDS: lactobacillus rhamnosus 10,000 MMU CELLS/CAPSULE PO SCH (08:29)
[2019-03-30] MEDS: triamterene/HCTZ 37.5/25mg tablet PO SCH (08:29)
[2019-03-30] MEDS: CefTRIAXone/D5W-Rocephin 1gm 50 ML IV SCH (08:30)
[2019-03-30] MEDS: enoxaparin 40mg/0.4ml syringe SUBCUT SCH (08:30)
[2019-03-30] MEDS: acetaminophen 325mg tablet PO PRN (08:33)
[2019-03-30] MEDS ORDERED: PANT40SU2 PO (11:49)
--- NOTE | 2019-03-30 15:09 | NUR ---
PATIENT VERY UPBEAT AND CHEERFUL STATING SHE WOULD LIKE TO GO HOME. SEEN BY DR MATTHEWS, IS FOR DC. ALL INSTRUCTIONS GIVEN TO PATIENT AND DAUGHTER. PATIENT DC TO [place] WITH DAUGHTER VIA PRIVATE CAR, IN STABLE CONDITION.
== END 2019-03-30 13:36 | disposition home health service (06) | DRG 189 ==
LOC: ER 16:19 → SUR 3N 21:17
PROVIDERS: ADMIT Hospitalist; ATTEND Internal Medicine
DX: J96.21 Acute and chronic respiratory failure with hypoxia (principal); A41.9 Sepsis, unspecified organism; J44.1 Chronic obstructive pulmonary disease with (acute) exacerbation; N39.0 Urinary tract infection, site not specified; D72.825 Bandemia; E78.5 Hyperlipidemia, unspecified; I10 Essential (primary) hypertension; G89.29 Other chronic pain; R32 Unspecified urinary incontinence; I48.91 Unspecified atrial fibrillation; D64.9 Anemia, unspecified; M54.9 Dorsalgia, unspecified; I34.1 Nonrheumatic mitral (valve) prolapse; J06.9 Acute upper respiratory infection, unspecified; Z66 Do not resuscitate; Z79.82 Long term (current) use of aspirin; Z85.828 Personal history of other malignant neoplasm of skin; Z90.710 Acquired absence of both cervix and uterus; Z98.1 Arthrodesis status; Z79.899 Other long term (current) drug therapy; Z88.2 Allergy status to sulfonamides; Z91.040 Latex allergy status; Z82.49 Family history of ischemic heart disease and other diseases of the circulatory system; Z83.3 Family history of diabetes mellitus
CPT/HCPCS: 36415; 36600; 71045; 80048; 80053; 81001; 82607; 82803; 83605; 84145; 84484; 85018; 85025; 85610; 85730; 87040; 87081; 87088; 93005; 94640; 94660; 94760; 96374; 97112; 97116; 97161; 97530; 97535; 99291; G0378; J0456; J0696; J1650; J2930; J7030